=== PATIENT | female | born 2000 | race Caucasian/White ===

== ENCOUNTER → 2021-02-11 | Emergency (ER) | payer OTHER ==
[~2021-02-11] VITALS: Ht 165.1 cm; Wt 52.2 kg
[~2021-02-11] MED LIST: KEPPRA750 MG PO; MIRALAX510 GM PO; PREPARATION H C26 GM TOP; SYNTHROID50 MCG PO; ZONEGRAN100 MG PO
== END | disposition home or self-care (01) ==
LOC: EMR PED 17:21
DX: K60.2 Anal fissure, unspecified (principal)